=== PATIENT | female | born 1990 | race African-American/Black ===

== ENCOUNTER 2017-11-07 16:45 | Emergency (ER) | payer MEDICAID, OTHER ==
[~2017-11-07] VITALS: Ht 162.6 cm; Wt 57.0 kg
[2017-11-07 17:24] VITALS: BP 123/69
== END 2017-11-07 19:17 | disposition home or self-care (01) ==
LOC: ER 18:04
DX: S80.01XA Contusion of right knee, initial encounter (principal); V49.60XA Unspecified car occupant injured in collision with unspecified motor vehicles in traffic accident, initial encounter; Y93.9 Activity, unspecified; Y92.9 Unspecified place or not applicable; F17.210 Nicotine dependence, cigarettes, uncomplicated
CPT/HCPCS: 99283